=== PATIENT | female | born 1975 | race Caucasian/White ===

== ENCOUNTER 2018-02-06 07:20 | Day surgery (SDC) | payer OTHER ==
[2018-02-06] MEDS ORDERED: Propofol 10 mg/ml Inj (20 ML) ONE (10:01)
[2018-02-06] MEDS ORDERED: Midazolam 2 MG/2 ML VIAL ONE (10:01)
[2018-02-06] MEDS ORDERED: cefOXitin IV 1 gm in Dextrose 2 GM/100 ML BAG IVPB ONE (10:19)
[2018-02-06] MEDS ORDERED: Lactated Ringer's 1,000 ML IV ONE (10:50)
--- NOTE | 2018-02-06 10:59 | PCM.SURG1 ---
Surgeon's Initial Post Op Note - Surgeon's Notes Surgeon: dr yao Detective Narcotics And Vice: none Type of Anesthesia: General Endo Anesthesia Administered By: dr robles Pre-Operative Diagnosis: 42 yr widwayne damian medical management Operative Findings: see the op report Post-Operative Diagnosis: same with crrvical and end polyp Operation Performed: myasure/d&c, hysterscopy Specimen/Specimens Removed: ecc. emc. cervical polyp. end polyp Estimated Blood Loss: EBL {In ML}: 20 Blood Products Given: N/A Drains Used: No Drains Post-Op Condition: Good Date of Surgery/Procedure: 02/06/18 Time of Surgery/Procedure: 11:00
[2018-02-06 12:11] VITALS: RESP 16
[2018-02-06 13:28] VITALS: BP 123/80; PULSE 66; TEMP 98.5; O2SAT 100
--- NOTE | 2018-02-08 08:12 | OP ---
PROCEDURE DATE: 02/06/2018 PREOPERATIVE DIAGNOSIS: A 42-year-old 3, para 3 with abnormal uterine bleeding, failed medical management. POSTOPERATIVE DIAGNOSIS: Cervical and endometrial polyp. PROCEDURE PERFORMED: MyoSure, dilatation and curettage, cystoscopy, and cervical polypectomy. SURGEON: Steve Madsen MD RELOCATION COORDINATOR SURGEON: None. ANESTHESIOLOGIST: Dr. Taylor. TYPE OF ANESTHESIA: General anesthesia. COMPLICATIONS: None. DESCRIPTION OF PROCEDURE: After informed consent was obtained, the patient was brought to the operating room, placed on the table where general anesthesia was given. When anesthesia was found to be sufficient, she was prepped and draped in normal sterile fashion. No pelvic or adnexal masses. Anterior lip of the cervix was grasped with a tenaculum. taken with forceps and sent to pathology. After that, was done. After that, decision again was to use the MyoSure. MyoSure was used to remove the polyp. Sharp curettage was done. ECC was done and sent to pathology. was 200 mL. EBL was 100 mL. After that, tenaculum was taken out of the anterior lip of the cervix. The patient tolerated the procedure well. Lap, sponge, and instruments were corrected x2. Steve Madsen MD
== END 2018-02-06 13:40 | disposition home or self-care (01) ==
LOC: C.SDS 07:20
PROVIDERS: ATTEND Obstetrics & Gynecology
DX: N84.0 Polyp of corpus uteri (principal); N93.9 Abnormal uterine and vaginal bleeding, unspecified; N84.1 Polyp of cervix uteri
CPT/HCPCS: 58558; 88305; J0694; J2001; J2250; J2405; J2704; J3010; J7120